=== PATIENT | male | born 1950 | race Caucasian/White ===

== ENCOUNTER 2021-06-21 12:17 | Inpatient (IN) | payer OTHER ==
--- NOTE | 2021-06-21 13:15 | RAD REPORT ---
EXAM DESCRIPTION: RAD - Chest Single View - 06/21/2021 1:04 pm CLINICAL HISTORY: COUGH COMPARISON: No comparisons FINDINGS: Lines: None. Lungs: Widespread milder airspace disease in the right lung and left lung base. The left upper lobe i s relatively well aerated Pleural: No significant pleural effusions or pneumothorax. Cardiac: The heart size is within normal limits. Bones: No acute fractures. Other: IMPRESSION: Multifocal airspace disease may represent pneumonia, including Covid-19
--- NOTE | 2021-06-21 13:18 | RAD REPORT ---
EXAM DESCRIPTION: CT - Head Brain Wo Cont - 06/21/2021 1:10 pm CLINICAL HISTORY: PAIN COMPARISON: No comparisons TECHNIQUE: All CT scans are performed using dose optimization technique as appropriate and may inclu de automated exposure control or mA/KV adjustment according to patient size. FINDINGS: No intracranial hemorrhage, hydrocephalus or extra-axial fluid collection.No areas of brai n edema or evidence of midline shift. Paranasal sinus thickening including the maxillary sinuses and ethmoid air cells. The calvarium is in tact. IMPRESSION: No acute intracranial abnormality.
[2021-06-21 13:33] LABS: Basophils % 0.5 % (0-1.3); Hematocrit 35.8 % (39.6-49.0); Lymphocytes % 7.5 % (15.3-44.8); MPV 7.8 fL (7.6-11.3); Protime INR 1.11
[2021-06-21 13:52] LABS: ALT/SGPT 28 U/L (12-78); AST/SGOT 44 U/L (15-37); Albumin 3.2 g/dL (3.4-5.0); Alkaline Phosphatase 115 U/L (45-117); BUN Blood Urea Nitrogen 17 mg/dL (7-18); Bicarbonate 23 mmol/L (21-32); Bilirubin Direct 0.2 mg/dL (0-0.2); Bilirubin Total 0.4 mg/dL (0.2-1.0); Ferritin 755.1 ng/mL (26-388); Glucose Level 113 mg/dL (74-106); Magnesium 3.3 mg/dL (1.8-2.4); NT PRO-BNP 205 pg/mL (<125); Potassium 3.7 mmol/L (3.5-5.1); Protein, Total 7.7 g/dL (6.4-8.2); Sodium Level 138 mmol/L (136-145); Troponin (Emerg Dept Use Only) < 0.02 ng/mL (0.0-0.045)
[2021-06-21 14:06] LABS: Blood Morphology Comment NOT SEEN (NOT SEEN); Platelet Estimate INCR; White Blood Cell Scan OK (OK)
--- NOTE | 2021-06-21 14:44 | EDPHYS ---
Physician Documentation [facility] Name: Shaheed Frank Jr Age: 70 yrs Sex: Male : 1950 Arrival Date: 06/21/2021 Time: 12:19 Bed 3 Private MD: ED Physician Zulema Baxter HPI: 06/21 13:04 This 70 yrs old Male presents to ER via Ambulatory with complaints of sp3 Breathing Difficulty. 13:04 70-year-old male with history of hypertension presents with shortness of breath, cough, sp3 subjective fever for 7 days prior to arrival. Room air pulse ox in the low 80s on arrival. Patient was placed in the room I have immediately seen the patient. Patient denies getting a Covid vaccine or exposure to known sick contacts. He has no other complaints including headache, neck pain, chest pain, back pain, abdominal pain, loss of taste or smell, nausea, vomiting, diarrhea, syncope, neuro symptoms, rash, bleeding, any other ROS at this time.. Historical: - Allergies: 12:27 No Known Allergies; tw2 - Home Meds: 12:33 clopidogrel 75 mg oral tab 1 tab once daily [Active]; amlodipine 10 mg tab 1 tab once ld1 daily [Active]; lisinopril 20 mg Oral tab 1 tab once daily [Active]; - PMHx: 12:35 Hypertensive disorder; tw2 - Immunization history:: Adult Immunizations Client reports having NOT received the Covid vaccine. - Social history:: Smoking status: Patient reports the use of cigarette tobacco products, smokes one-half pack cigarettes per day. ROS: 13:05 Eyes: Negative for injury, pain, redness, and discharge, ENT: Negative for injury, sp3 pain, and discharge, Neck: Negative for injury, pain, and swelling, Cardiovascular: Negative for chest pain, palpitations, and edema, Abdomen/GI: Negative for abdominal pain, nausea, vomiting, diarrhea, and constipation, Skin: Negative for injury, rash, and discoloration, Neuro: Negative for headache, weakness, numbness, tingling, and seizure, Psych: Negative for depression, anxiety, suicide ideation, homicidal ideation, and hallucinations. 13:05 Constitutional: Positive for fatigue, malaise. 13:05 Respiratory: Positive for cough, dyspnea on exertion, shortness of breath. Exam: 13:06 Head/Face: Normocephalic, atraumatic. Neck: Trachea midline, no thyromegaly or masses sp3 palpated, and no cervical lymphadenopathy. Supple, full range of motion without nuchal rigidity, or vertebral point tenderness. No Meningismus. Chest/axilla: Normal chest wall appearance and motion. Nontender with no deformity. No lesions are appreciated. Cardiovascular: Regular rate and rhythm with a normal S1 and S2. No gallops, murmurs, or rubs. Normal PMI, no JVD. No pulse deficits. Abdomen/GI: Soft, non-tender, with normal bowel sounds. No distension or tympany. No guarding or rebound. No evidence of tenderness throughout. Skin: Warm, dry with normal turgor. Normal color with no rashes, no lesions, and no evidence of cellulitis. Neuro: Awake and alert, GCS 15, oriented to person, place, time, and situation. Cranial nerves II-XII grossly intact. Motor strength 5/5 in all extremities. Sensory grossly intact. Cerebellar exam normal. Normal gait. 13:06 Constitutional: The patient appears alert, awake, anxious, in obvious distress, moderately distressed. 13:55 ECG was reviewed by the Attending Physician. He demonstrates normal sinus rhythm at 76 sp3 bpm with normal intervals, normal QRS, normal axis, nonspecific ST/T changes diffuse. Vital Signs: 12:23 BP 143 / 109; Pulse 83; Resp 24; Temp 97.2; Pulse Ox 76% on R/A; Weight 99.79 kg (R); tw2 13:56 BP 99 / 59; Pulse 79; Resp 24 S; Pulse Ox 93% on 6 lpm NC; jd3 16:07 BP 118 / 95; Pulse 79; Resp 25 S; Pulse Ox 90% on 6 lpm NC; jd3 12:23 started on 4 L NC tw2 MDM: 12:43 Patient medically screened. sp3 13:06 Data reviewed: vital signs, nurses notes. ED course: Patient severely hypoxic and sp3 immediately placed on oxygen. He likely has COVID-19. Will obtain work-up and start treatment based on final diagnosis and disposition. Other differential diagnosis includes bacterial pneumonia or cardiovascular process including acute coronary syndrome.. 14:41 ED course: Patient admitted with essentially COVID-19. Test is still pending. Will give sp3 Solu-Medrol and Lovenox.. 06/21 12:45 Order name: Basic Metabolic Panel; Complete Time: 14:09 sp3 06/21 12:45 Order name: CBC with Diff; Complete Time: 14:09 sp3 06/21 12:45 Order name: LFT's; Complete Time: 14:09 sp3 06/21 12:45 Order name: Magnesium; Complete Time: 14:09 sp3 06/21 12:45 Order name: NT PRO-BNP; Complete Time: 14:09 sp3 06/21 12:45 Order name: PT-INR; Complete Time: 14:09 sp3 06/21 12:45 Order name: Troponin (emerg Dept Use Only); Complete Time: 14:09 sp3 06/21 12:45 Order name: Ferritin; Complete Time: 14:09 sp3 06/21 12:45 Order name: CRP; Complete Time: 14:09 sp3 06/21 14:06 Order name: CBC Smear Scan; Complete Time: 14:09 EDMS 06/21 15:41 Order name: SARS-COV-2 RT PCR; Complete Time: 16:15 EDMS 06/21 18:26 Order name: Lipid Profile EDMS 06/21 12:45 Order name: XRAY Chest (1 view); Complete Time: 14:09 sp3 06/21 12:45 Order name: EKG; Complete Time: 12:46 sp3 06/21 12:45 Order name: Cardiac monitoring; Complete Time: 13:24 sp3 06/21 12:45 Order name: EKG - Nurse/Tech; Complete Time: 13:44 sp3 06/21 12:45 Order name: IV Saline Lock; Complete Time: 13:24 sp3 06/21 12:45 Order name: Labs collected and sent; Complete Time: 13:24 sp3 06/21 12:45 Order name: O2 Per Protocol; Complete Time: 13:24 sp3 06/21 12:45 Order name: O2 Sat Monitoring; Complete Time: 13:24 sp3 06/21 12:51 Order name: CT Head Brain wo Cont; Complete Time: 14:09 sp3 06/21 15:10 Order name: Diet Regular; Complete Time: 15:11 jd3 06/21 18:26 Order name: T4 Free EDMS 06/21 18:26 Order name: Thyroid Stimulating Hormone EDMS 06/21 21:23 Order name: Hemoglobin A1c EDNE Administered Medications: 13:24 Not Given (Physician Discretion): Ketorolac 30 mg IVP once jd3 15:00 Drug: SOLU-Medrol (methylPrednisoLONE) 125 mg Route: IVP; Site: left antecubital; jd3 16:00 Follow up: Response: No adverse reaction jd3 15:01 Drug: Lovenox (enoxaparin) 1 mg/kg Route: Sub-Q; Site: abdomen; jd3 16:00 Follow up: Response: No adverse reaction jd3 Disposition Summary: 06/21/21 14:44 Hospitalization Ordered Hospitalization Status: Inpatient Admission sp3 Provider: Raúl Zambrano sp3 Location: Telemetry/[facility] (Inpatient) sp3 Condition: Serious sp3 Problem: new sp3 Symptoms: have worsened sp3 Bed/Room Type: Standard sp3 Room Assignment: 412(06/22/21 00:07) tl1 Diagnosis - Pneumonia due to SARS-associated coronavirus sp3 Forms: - Medication Reconciliation Form sp3 - SBAR form sp3 Signatures: Dispatcher [employer] [facility] Emmy Smith RN RN tl1 Carley White RN RN tw2 Wally Virgen RN RN jd3 Clara Flores RN RN ld1 Zulema Baxter MD MD sp3 Corrections: (The following items were deleted from the chart) 13:49 13:25 CORONAVIRUS+.BRZ ordered. [facility] EDNE 06/22 00:07 06/21 14:44 sp3 tl1
--- NOTE | 2021-06-21 14:44 | ER ---
Nurse's Notes [facility] Name: Shaheed Frank Jr Age: 70 yrs Sex: Male : 1950 Arrival Date: 06/21/2021 Time: 12:19 Bed 3 Private MD: Diagnosis: Pneumonia due to SARS-associated coronavirus Presentation: 06/21 12:23 Chief complaint: Patient states: i am h having a hard time walking Patient's son or tw2 daughter states: he has been coughing and short of breath for over a week. he just hasnt gotten any better. Coronavirus screen: cough unrelated to allergies, shortness of breath, Client presents with at least one sign or symptom that may indicate coronavirus-19. Standard/surgical mask placed on the client. Provider contacted for isolation considerations. Ebola Screen: Patient denies travel to an Ebola-affected area in the 21 days before illness onset. Initial Sepsis Screen: Does the patient meet any 2 criteria? No. Patient's initial sepsis screen is negative. Does the patient have a suspected source of infection? No. Patient's initial sepsis screen is negative. Risk Assessment: Do you want to hurt yourself or someone else? Patient reports no desire to harm self or others. Onset of symptoms was June 21, 2021. 12:23 Method Of Arrival: Ambulatory tw2 12:23 Acuity: CHUCKY 2 tw2 Triage Assessment: 12:23 General: Appears in no apparent distress. Behavior is calm, cooperative, appropriate tw2 for age. Pain: Denies pain. Respiratory: Reports shortness of breath at rest on exertion cough that is non-productive, Onset: The symptoms/episode began/occurred "a week now", the patient has severe shortness of breath. Historical: - Allergies: 12:27 No Known Allergies; tw2 - Home Meds: 12:33 clopidogrel 75 mg oral tab 1 tab once daily [Active]; amlodipine 10 mg tab 1 tab once ld1 daily [Active]; lisinopril 20 mg Oral tab 1 tab once daily [Active]; - PMHx: 12:35 Hypertensive disorder; tw2 - Immunization history:: Adult Immunizations Client reports having NOT received the Covid vaccine. - Social history:: Smoking status: Patient reports the use of cigarette tobacco products, smokes one-half pack cigarettes per day. Screenin:35 Abuse screen: Denies threats or abuse. Nutritional screening: No deficits noted. tw2 Tuberculosis screening: No symptoms or risk factors identified. Fall Risk Secondary diagnosis (15 points). Assessment: 13:00 General: Appears in no apparent distress. uncomfortable, Behavior is calm, cooperative, jd3 appropriate for age. Pain: Complains of pain in back and chest Quality of pain is described as pressure. Neuro: Level of Consciousness is awake, alert, obeys commands, Oriented to person, place, time, situation. Cardiovascular: Denies chest pain, Capillary refill < 3 seconds Patient's skin is warm and dry. Rhythm is sinus rhythm. Respiratory: Reports shortness of breath at rest cough that is dry, persistent Airway is patent Respiratory effort is labored, shallow, Respiratory pattern is symmetrical, tachypnea Breath sounds are diminished bilaterally. GI: No signs and/or symptoms were reported involving the gastrointestinal system. : No signs and/or symptoms were reported regarding the genitourinary system. EENT: No signs and/or symptoms were reported regarding the EENT system. Derm: Skin is intact, Skin is dry, Skin is normal, Skin temperature is warm. Musculoskeletal: Circulation, motion, and sensation intact. Range of motion: intact in all extremities. 14:01 Reassessment: Patient appears in no apparent distress at this time. No changes from jd3 previously documented assessment. Patient and/or family updated on plan of care and expected duration. Pain level reassessed. Respiratory: Airway is patent Respiratory effort is appears more relaxed Respiratory pattern is symmetrical, tachypnea. 16:06 Reassessment: Patient appears in no apparent distress at this time. No changes from jd3 previously documented assessment. Patient and/or family updated on plan of care and expected duration. Pain level reassessed. awaiting admission. 06/22 00:32 Reassessment: Patient and/or family updated on plan of care and expected duration. Pain ea level reassessed. Patient is alert, oriented x 3, equal unlabored respirations, skin warm/dry/pink. Pt admitted to fourth floor. 00:54 Reassessment: Patient and/or family updated on plan of care and expected duration. Pain ea level reassessed. Patient is alert, oriented x 3, equal unlabored respirations, skin warm/dry/pink. Pt admitted to fourth floor, left ED via stretcher per neurology tech, pt tolerating well. Vital Signs: 06/21 12:23 BP 143 / 109; Pulse 83; Resp 24; Temp 97.2; Pulse Ox 76% on R/A; Weight 99.79 kg (R); tw2 13:56 BP 99 / 59; Pulse 79; Resp 24 S; Pulse Ox 93% on 6 lpm NC; jd3 16:07 BP 118 / 95; Pulse 79; Resp 25 S; Pulse Ox 90% on 6 lpm NC; jd3 12:23 started on 4 L NC tw2 ED Course: 12:19 Patient arrived in ED. am2 12:23 Notified ED physician of vital signs. tw2 12:26 Triage completed. tw2 12:27 Arm band placed on. tw2 12:27 Bed in low position. Call light in reach. monitoring analyst on. Pulse ox on. NIBP on. tw2 12:28 Wally Virgen RN is Primary Nurse. jd3 12:32 Zulema Baxter MD is Attending Physician. sp3 13:04 XRAY Chest (1 view) In Process Unspecified. EDMS 13:09 CT Head Brain wo Cont In Process Unspecified. EDMS 13:24 Inserted saline lock: 20 gauge in left antecubital area, using aseptic technique. Blood jd3 collected. 14:44 Raúl Zambrano is Hospitalizing Provider. sp3 18:00 Patient admitted, IV remains in place. jd3 18:42 No provider procedures requiring assistance completed. jd3 Administered Medications: 13:24 Not Given (Physician Discretion): Ketorolac 30 mg IVP once jd3 15:00 Drug: SOLU-Medrol (methylPrednisoLONE) 125 mg Route: IVP; Site: left antecubital; jd3 16:00 Follow up: Response: No adverse reaction jd3 15:01 Drug: Lovenox (enoxaparin) 1 mg/kg Route: Sub-Q; Site: abdomen; jd3 16:00 Follow up: Response: No adverse reaction jd3 Outcome: 14:44 Decision to Hospitalize by Provider. sp3 18:00 Admitted to ER Hold. [facility] [place]. jd3 18:00 Condition: stable 18:00 Instructed on the need for admit. 06/22 00:55 Patient left the ED. ea Signatures: Dispatcher [employer] EDCarley Mckeon RN RN tw2 Laurie Aguayo am2 Kristine Cortes RN RN Wally Can RN RN jd3 Clara Flores RN RN ld1 Zulema Baxter MD MD sp3 Corrections: (The following items were deleted from the chart) 06/21 16:07 13:56 BP 99 / 59; Pulse 79bpm; Resp 24bpm; Spontaneous; Pulse Ox 94% RA; jd3 jd3
[2021-06-21] MEDS ORDERED: METHYLPREDNISOLONE 125 MG INJ ONE (15:10)
[2021-06-21] MEDS ORDERED: ENOXAPARIN 100 MG/ML SYR SQ ONE (15:10)
[2021-06-21] MEDS ORDERED: LABETALOL 20 MG/4ML SYRINGE IV PRN (16:08)
[2021-06-21] MEDS ORDERED: ONDANSETRON 4 MG/2 ML VIAL IV PRN (16:09)
[2021-06-21] MEDS ORDERED: ACETAMINOPHEN 500 MG TAB PO PRN (16:09)
[2021-06-21] MEDS ORDERED: HYDROCODONE/APAP 5/325 MG TAB PO PRN (16:25)
--- NOTE | 2021-06-21 16:25 | P.HP ---
Certification for Inpatient Patient admitted to: Inpatient With expected LOS: >2 Midnights Patient will require the following post-hospital care: None Practitioner: I am a practitioner with admitting privileges, knowledge of patient current condition, hospital course, and medical plan of care. Services: Services provided to patient in accordance with Admission requirements found in Title 42 Section 412.3 of the Code of Federal Regulations Patient History Date of Service: 06/22/21 Reason for admission: SOB History of Present Illness: Patient is a 70-year-old male with a past medical history significant for hypertension who presents with shortness of breath does been ongoing for the past 4 days. Patient reported that he started having fever 1 week ago. Patient reports associated signs and symptoms of cough, dizziness, loss of appetite//taste, weakness, fatigue and chest tightness. Patient reported that symptoms are aggravated by exertion and relieved by nothing. Patient decided to present to the hospital due to worsening symptoms. Allergies No Known Allergies Allergy (Unverified 06/21/21 15:57) Home medications list reviewed: No - Past Medical/Surgical History -: HTN Past Surgical History: Patient denies surgical history - Family History Family History: Reviewed- Non-Contributory - Social History Smoking Status: Current every day smoker Counseled patient to stop smoking for: less than 10 minutes Smoking therapy provided: Yes Patient receptive to therapy: Yes Alcohol use: Yes Place of Residence: Home Review of Systems General: Fever, Chills, Weakness Eyes: Unremarkable ENT: Unremarkable Respiratory: Cough, Shortness of Breath Cardiovascular: Unremarkable Gastrointestinal: Nausea, Vomiting Genitourinary: Unremarkable Musculoskeletal: Unremarkable Integumentary: Unremarkable Neurological: Unremarkable Physical Examination - Physical Exam General: Alert, In no apparent distress, Mild distress HEENT: Atraumatic, PERRLA, Mucous membr. moist/pink, EOMI, Sclerae nonicteric Neck: Supple, 2+ carotid pulse no bruit, No LAD, Without JVD or thyroid abnormality Respiratory: Clear to auscultation bilaterally, Diminished Cardiovascular: Regular rate/rhythm, Normal S1 S2 Gastrointestinal: Normal bowel sounds, No tenderness Musculoskeletal: No tenderness Integumentary: No rashes Neurological: Normal gait, Normal speech, Normal strength at 5/5 x4 extr, Normal tone, Normal affect Lymphatics: No axilla or inguinal lymphadenopathy External genitalia: Deferred Rectal: Deferred - Studies Laboratory Data (last 24 hrs) 06/21/21 13:21: PT 12.8 H, INR 1.11 06/21/21 13:21: WBC 13.90 H, Hgb 12.2 L, Hct 35.8 L, Plt Count 448 H 06/21/21 13:21: Sodium 138, Potassium 3.7, BUN 17, Creatinine 0.95, Glucose 113 H, Magnesium 3.3 H, Total Bilirubin 0.4, AST 44 H, ALT 28, Alkaline Phosphatase 115 Assessment and Plan - Plan --COVID-19 pneumonia. Pulmonology consulted. Patient started on steroids.Continue supportive care with pepcid\vitamin C\thiamine\zinc\vitamin D3 and Melatonin. Will await further recommendation from [employer]. --COVID-19 infection. Continue current treatment regimen. Inflammatory markers pending. Further management per [employer]. -- Acute respiratory distress with hypoxia. Continue current treatment regimen and O2 therapy. Further management per [employer]. --Hypertension. Stable. Continue home medications. --Leukocytosis. Blood cultures pending. Patient placed on antibiotics. --DVT prophylaxis with Heparin subQ I have had discussion about advanced directives with the patient during this hospital admission. Addressed code status and /or goals of care. Spent more than 15 minutes. Case discussed withpatient and nurse. Discharge Plan: Home Plan to discharge in: 48 Hours - Advance Directives Does patient have a Living Will: No Does patient have a Durable POA for Healthcare: No - Code Status/Comfort Care Code Status Assessed: Yes Code Status: Full Code Physician Review: Patient Assessed, Agree with Above Assessment and Plan Critical Care: No
[2021-06-21] MEDS: HEPARIN 5000 UNIT/ML 1 ML VIAL SQ SCH (17:00)
[2021-06-21] MEDS ORDERED: Levofloxacin500mg IV 500 MG/100 ML BAG IV ONE (17:00)
[2021-06-21] MEDS ORDERED: HEPARIN 5000 UNIT/ML 1 ML VIAL ONE (18:04)
[2021-06-21 18:26] LABS: Thyroid Stimulating Hormone 0.362 uIU/mL (0.360-3.740)
[2021-06-21 18:42] VITALS: BMI 30.7
[2021-06-22] MEDS: ASCORBIC ACID 500 MG TABLET PO SCH ×3 (01:27→20:35)
[2021-06-22] MEDS: FAMOTIDINE 20 MG TAB PO SCH ×3 (01:27→20:35)
[2021-06-22] MEDS: HEPARIN 5000 UNIT/ML 1 ML VIAL SQ SCH ×3 (01:27→17:17)
[2021-06-22] MEDS: MELATONIN 5 MG TABLET PO SCH ×2 (01:33→20:35)
[2021-06-22 04:16] LABS: Absolute Lymphocytes (CBC) 1.3 K/uL (0.7-4.9); Basophils % 0.1 % (0-1.3); Hematocrit 34.6 % (39.6-49.0); Lymphocytes % 7.7 % (15.3-44.8); RBC Red Blood Cell Count 4.15 M/uL (4.33-5.43)
[2021-06-22 04:24] LABS: BUN Blood Urea Nitrogen 21 mg/dL (7-18); Bicarbonate 25 mmol/L (21-32); Glucose Level 147 mg/dL (74-106); Potassium 4.2 mmol/L (3.5-5.1); Sodium Level 139 mmol/L (136-145)
[2021-06-22] MEDS: VITAMIN D 5,000 UNIT CAP PO SCH (08:43)
[2021-06-22] MEDS: ASPIRIN EC 81 MG TAB PO SCH (08:43)
[2021-06-22] MEDS: ZINC SULFATE 220 MG CAP PO SCH (08:43)
[2021-06-22] MEDS: THIAMINE HCL 100 MG TABLET PO SCH (08:43)
[2021-06-22] MEDS: SOD CHLORIDE 0.65% NASAL SPRAY NAS PRN (11:35)
[2021-06-22] MEDS: FLUTICASONE 50MCG NASAL SPRAY NAS SCH (11:35)
[2021-06-22] MEDS: FEXOFENADINE 180 MG TAB PO PRN (11:35)
[2021-06-22 13:03] LABS: Urine Appearance CLEAR (Clear); Urine Bilirubin NEGATIVE (Negative); Urine Blood NEGATIVE (Negative); Urine Color YELLOW (Yellow); Urine Glucose NEGATIVE (Negative); Urine Protein 1+ (Negative); Urine Specific Gravity 1.015 (1.005-1.030); Urine Urobilinogen 0.2 mg/dL (0.2-1.0)
[2021-06-22 13:05] LABS: Urine Microscopic Reflex NO UMIC
--- NOTE | 2021-06-22 16:52 | P.PN ---
Subjective Date of Service: 06/22/21 Chief Complaint: SOB Patient reports shortness of breath. Oxygen requirement increased to 10-15 L today. Physical Examination - Vital Signs Temperature: 97.2 F Blood Pressure: 133/79 Pulse: 89 Respirations: 32 Pulse Ox (%): 92 - Physical Exam General: Alert, Mild distress HEENT: Mucous membr. moist/pink Neck: JVD not distended Respiratory: Other (Nonlabored breathing) Cardiovascular: No edema, Regular rate/rhythm, Normal S1 S2 Gastrointestinal: Soft and benign, Non-distended Musculoskeletal: No swelling Integumentary: No rashes Neurological: Normal strength at 5/5 x4 extr Assessment And Plan - Current Problems (Diagnosis) (1) Pneumonia due to COVID-19 virus Current Visit: Yes Status: Acute (2) Acute respiratory failure with hypoxia Current Visit: Yes Status: Acute (3) Essential hypertension Current Visit: Yes Status: Acute - Plan Continue IV steroid. Pharmacy to evaluate for Remdesivir and Baracitinib therapy. Titrate oxygen. Pulmonary consult is pending. Vitamins and zinc supplementation. Empiric antibiotics for possible secondary bacterial pneumonia. Resume home medications for hypertension and CAD. Physician Review: Patient Assessed, Agree with Above Assessment and Plan
[2021-06-22] MEDS ORDERED: Levofloxacin500mg IV 500 MG/100 ML BAG IV SCH (17:00)
[2021-06-22] MEDS: levoFLOXacin 500 MG TAB PO SCH (17:17)
[2021-06-22] MEDS: CLOPIDOGREL 75 MG TABLET PO SCH (17:17)
[2021-06-22] MEDS: lisinopriL 20 MG TAB PO SCH (17:17)
[2021-06-22] MEDS ORDERED: REMDESIVIR (EUA) 200 MG in NA CHLORIDE 0.9% 250 ML IV ONE (18:00)
[2021-06-22 18:38] LABS: ALT/SGPT 39 U/L (12-78); AST/SGOT 54 U/L (15-37); Albumin 2.7 g/dL (3.4-5.0); Alkaline Phosphatase 122 U/L (45-117); Bilirubin Direct < 0.1 mg/dL (0-0.2); Bilirubin Total 0.3 mg/dL (0.2-1.0); Protein, Total 7.1 g/dL (6.4-8.2)
[2021-06-22] MEDS: ATORVASTATIN 80 MG TAB PO SCH (20:35)
[2021-06-22] MEDS: METHYLPREDNISOLONE 125 MG INJ IV SCH (21:58)
[2021-06-23] MEDS: BENZONATATE 100 MG CAP PO PRN (00:45)
[2021-06-23] MEDS: HEPARIN 5000 UNIT/ML 1 ML VIAL SQ SCH ×2 (00:45→09:24)
[2021-06-23 04:50] LABS: Absolute Lymphocytes (CBC) 1.6 K/uL (0.7-4.9); Basophils % 0.3 % (0-1.3); Hematocrit 34.8 % (39.6-49.0); RBC Red Blood Cell Count 4.14 M/uL (4.33-5.43)
[2021-06-23 05:10] LABS: BUN Blood Urea Nitrogen 21 mg/dL (7-18); Bicarbonate 28 mmol/L (21-32); Glucose Level 140 mg/dL (74-106); Potassium 4.6 mmol/L (3.5-5.1); Sodium Level 138 mmol/L (136-145)
[2021-06-23 08:27] LABS: ALT/SGPT 51 U/L (12-78); AST/SGOT 50 U/L (15-37); Albumin 2.7 g/dL (3.4-5.0); Alkaline Phosphatase 131 U/L (45-117); BUN Blood Urea Nitrogen 21 mg/dL (7-18); Bicarbonate 27 mmol/L (21-32); Bilirubin Total 0.4 mg/dL (0.2-1.0); Glucose Level 140 mg/dL (74-106); Potassium 4.5 mmol/L (3.5-5.1); Protein, Total 7.2 g/dL (6.4-8.2); Sodium Level 138 mmol/L (136-145)
[2021-06-23 08:47] LABS: Blood Morphology Comment NOT SEEN (NOT SEEN); Platelet Estimate INCR
[2021-06-23] MEDS ORDERED: METHYLPREDNISOLONE 125 MG INJ IV SCH (09:00)
[2021-06-23] MEDS: METHYLPREDNISOLONE 125 MG INJ IV SCH ×2 (09:22→19:56)
[2021-06-23] MEDS: ASPIRIN EC 81 MG TAB PO SCH (09:23)
[2021-06-23] MEDS: THIAMINE HCL 100 MG TABLET PO SCH (09:23)
[2021-06-23] MEDS: AMLODIPINE 10 MG TAB PO SCH (09:23)
[2021-06-23] MEDS: FAMOTIDINE 20 MG TAB PO SCH ×2 (09:23→19:57)
[2021-06-23] MEDS: lisinopriL 20 MG TAB PO SCH (09:23)
[2021-06-23] MEDS: ASCORBIC ACID 500 MG TABLET PO SCH ×2 (09:23→19:57)
[2021-06-23] MEDS: VITAMIN D 5,000 UNIT CAP PO SCH (09:23)
[2021-06-23] MEDS: CLOPIDOGREL 75 MG TABLET PO SCH (09:23)
[2021-06-23] MEDS: FLUTICASONE 50MCG NASAL SPRAY NAS SCH ×2 (09:24→20:11)
[2021-06-23] MEDS: ZINC SULFATE 220 MG CAP PO SCH (09:24)
[2021-06-23] MEDS: SOD CHLORIDE 0.65% NASAL SPRAY NAS PRN (09:24)
[2021-06-23] MEDS: REMDESIVIR (EUA) 100 MG in NA CHLORIDE 0.9% 250 ML IV SCH (10:30)
[2021-06-23] MEDS ORDERED: IVERMECTIN 3 MG TABLET PO ONE (12:41)
--- NOTE | 2021-06-23 12:42 | P.CNS ---
Date of Consult: 06/23/21 Reason for Consult: Coronavirus pneumonia Chief Complaint: SOB History of Present Illness: Patient is 70 years of age with a history of hypertension presents to the hospital with a diagnosis of coronavirus pneumonia currently doing better since admission loss of appetite weakness fatigue chest tightness Allergies No Known Allergies Allergy (Verified 06/22/21 01:22) Home Medications: Amlodipine [Norvasc*] 10 mg PO DAILY 06/22/21 Atorvastatin Calcium [Lipitor] 80 mg PO BEDTIME 06/22/21 Clopidogrel Bisulfate [Plavix*] 75 mg PO DAILY 06/22/21 Lisinopril [Zestril] 20 mg PO DAILY 06/22/21 - Past Medical/Surgical History Diabetic: No -: HTN - Social History Smoking Status: Current every day smoker Alcohol use: Yes CD- Drugs: No Caffeine use: Yes Place of Residence: Home Review of Systems General: Weakness Respiratory: Shortness of Breath Physical Examination Temp Pulse Resp BP Pulse Ox 97.7 F 81 22 H 134/57 L 92 06/23/21 08:00 06/23/21 08:00 06/23/21 08:00 06/23/21 08:00 06/23/21 08:00 General: Alert, Oriented x3, Cooperative - Problems (1) Pneumonia due to COVID-19 virus Current Visit: Yes Status: Acute Plan: Patient is 70 years of age admitted with pneumonia due to coronavirus he has diffuse bilateral infiltrates CRP is very elevated qualify for Barcitinib vital signs stable I have also started him on ivermectin continue with the steroids hold anticoagulation currently on 15 L 100% FiO2
[2021-06-23] MEDS: IVERMECTIN 3 MG TABLET PO SCH (15:23)
[2021-06-23] MEDS: BARICITINIB 2 MG TABLET PO SCH (15:23)
--- NOTE | 2021-06-23 16:46 | P.PN ---
Subjective Date of Service: 06/23/21 Chief Complaint: SOB Oxygen requirement has increased. Patient is not requiring 100% non-rebreather. Physical Examination - Vital Signs Temperature: 97.1 F Blood Pressure: 131/68 Pulse: 78 Respirations: 26 Pulse Ox (%): 92 - Physical Exam General: Alert, Mild distress Neck: JVD not distended Respiratory: Other (Mildly labored breathing) Cardiovascular: No edema, Regular rate/rhythm, Normal S1 S2 Gastrointestinal: Soft and benign, Non-distended Musculoskeletal: No swelling Neurological: Normal strength at 5/5 x4 extr Assessment And Plan - Current Problems (Diagnosis) (1) Pneumonia due to COVID-19 virus Current Visit: Yes Status: Acute (2) Acute respiratory failure with hypoxia Current Visit: Yes Status: Acute (3) Essential hypertension Current Visit: Yes Status: Acute - Plan Continue IV steroid. Patient started on Baracitinib and Remdesivir. Pulmonary input appreciated. Titrate oxygen. Vitamins and zinc supplementation. Continue home medications for hypertension and CAD.
[2021-06-23] MEDS: levoFLOXacin 500 MG TAB PO SCH (17:41)
[2021-06-23] MEDS: RIVAROXABAN 20 MG TABLET PO SCH (17:41)
[2021-06-23] MEDS: ATORVASTATIN 80 MG TAB PO SCH (19:56)
[2021-06-23] MEDS: MELATONIN 5 MG TABLET PO SCH (19:56)
[2021-06-24 05:55] LABS: Absolute Lymphocytes (CBC) 2.2 K/uL (0.7-4.9); Basophils % 0.2 % (0-1.3); Hematocrit 34.3 % (39.6-49.0); MPV 7.8 fL (7.6-11.3); RBC Red Blood Cell Count 4.07 M/uL (4.33-5.43)
[2021-06-24 06:06] LABS: ALT/SGPT 59 U/L (12-78); AST/SGOT 54 U/L (15-37); Albumin 2.6 g/dL (3.4-5.0); Alkaline Phosphatase 125 U/L (45-117); BUN Blood Urea Nitrogen 24 mg/dL (7-18); Bicarbonate 28 mmol/L (21-32); Bilirubin Total 0.3 mg/dL (0.2-1.0); Glucose Level 127 mg/dL (74-106); Potassium 4.4 mmol/L (3.5-5.1); Protein, Total 6.6 g/dL (6.4-8.2); Sodium Level 137 mmol/L (136-145)
[2021-06-24 07:38] LABS: Platelet Estimate ADEQ; White Blood Cell Scan OK (OK)
[2021-06-24 07:39] LABS: Blood Morphology Comment NOT SEEN (NOT SEEN)
[2021-06-24] MEDS: THIAMINE HCL 100 MG TABLET PO SCH (08:07)
[2021-06-24] MEDS: ASPIRIN EC 81 MG TAB PO SCH (08:07)
[2021-06-24] MEDS: BARICITINIB 2 MG TABLET PO SCH (08:07)
[2021-06-24] MEDS: ASCORBIC ACID 500 MG TABLET PO SCH ×2 (08:08→21:55)
[2021-06-24] MEDS: CLOPIDOGREL 75 MG TABLET PO SCH (08:08)
[2021-06-24] MEDS: METHYLPREDNISOLONE 125 MG INJ IV SCH ×2 (08:08→21:55)
[2021-06-24] MEDS: FAMOTIDINE 20 MG TAB PO SCH ×2 (08:09→21:57)
[2021-06-24] MEDS: VITAMIN D 5,000 UNIT CAP PO SCH (08:09)
[2021-06-24] MEDS: ZINC SULFATE 220 MG CAP PO SCH (08:09)
[2021-06-24] MEDS: lisinopriL 20 MG TAB PO SCH (08:13)
[2021-06-24] MEDS: AMLODIPINE 10 MG TAB PO SCH (08:14)
[2021-06-24] MEDS: FLUTICASONE 50MCG NASAL SPRAY NAS SCH ×2 (08:34→21:58)
[2021-06-24] MEDS: REMDESIVIR (EUA) 100 MG in NA CHLORIDE 0.9% 250 ML IV SCH (09:04)
--- NOTE | 2021-06-24 14:58 | P.PN ---
Subjective Date of Service: 06/24/21 Chief Complaint: SOB Patient states he is feeling better today He is on 100% non-rebreather. Physical Examination - Vital Signs Temperature: 97.4 F Blood Pressure: 109/69 Pulse: 79 Respirations: 18 Pulse Ox (%): 95 - Physical Exam General: Alert, In no apparent distress Neck: JVD not distended Respiratory: Other (Nonlabored breathing) Cardiovascular: No edema, Regular rate/rhythm, Normal S1 S2 Gastrointestinal: Soft and benign, Non-distended Musculoskeletal: No swelling Integumentary: No rashes, No cyanosis Neurological: Normal strength at 5/5 x4 extr Assessment And Plan - Current Problems (Diagnosis) (1) Pneumonia due to COVID-19 virus Current Visit: Yes Status: Acute (2) Acute respiratory failure with hypoxia Current Visit: Yes Status: Acute (3) Essential hypertension Current Visit: Yes Status: Acute - Plan Continue IV steroid Baracitinib and Remdesivir. Pulmonary is following Titrate oxygen. Patient with leukocytosis which is likely steroid induced. Blood sugar within normal range. Vitamins and zinc supplementation. Continue home medications for hypertension and CAD.
[2021-06-24] MEDS: levoFLOXacin 500 MG TAB PO SCH (16:06)
[2021-06-24] MEDS: RIVAROXABAN 20 MG TABLET PO SCH (16:06)
[2021-06-24] MEDS: MELATONIN 5 MG TABLET PO SCH (21:56)
[2021-06-24] MEDS: ATORVASTATIN 80 MG TAB PO SCH (21:56)
[2021-06-24] MEDS: SOD CHLORIDE 0.65% NASAL SPRAY NAS PRN (21:57)
[2021-06-25 04:16] LABS: Absolute Lymphocytes (CBC) 2.2 K/uL (0.7-4.9); Basophils % 0.4 % (0-1.3); Hematocrit 36.3 % (39.6-49.0); MPV 7.5 fL (7.6-11.3); RBC Red Blood Cell Count 4.31 M/uL (4.33-5.43)
[2021-06-25 04:25] LABS: ALT/SGPT 73 U/L (12-78); AST/SGOT 55 U/L (15-37); Albumin 2.6 g/dL (3.4-5.0); Alkaline Phosphatase 117 U/L (45-117); BUN Blood Urea Nitrogen 23 mg/dL (7-18); Bicarbonate 26 mmol/L (21-32); Bilirubin Total 0.4 mg/dL (0.2-1.0); Glucose Level 132 mg/dL (74-106); Potassium 4.7 mmol/L (3.5-5.1); Protein, Total 6.6 g/dL (6.4-8.2); Sodium Level 137 mmol/L (136-145)
[2021-06-25] MEDS: FLUTICASONE 50MCG NASAL SPRAY NAS SCH ×2 (09:00→21:00)
[2021-06-25] MEDS: BARICITINIB 2 MG TABLET PO SCH (09:00)
[2021-06-25] MEDS: ASPIRIN EC 81 MG TAB PO SCH (09:00)
[2021-06-25] MEDS: ASCORBIC ACID 500 MG TABLET PO SCH ×2 (09:05→21:30)
[2021-06-25] MEDS: METHYLPREDNISOLONE 125 MG INJ IV SCH ×2 (09:06→21:29)
[2021-06-25] MEDS: FAMOTIDINE 20 MG TAB PO SCH ×2 (09:06→21:30)
[2021-06-25] MEDS: VITAMIN D 5,000 UNIT CAP PO SCH (09:06)
[2021-06-25] MEDS: THIAMINE HCL 100 MG TABLET PO SCH (09:06)
[2021-06-25] MEDS: lisinopriL 20 MG TAB PO SCH (09:06)
[2021-06-25] MEDS: CLOPIDOGREL 75 MG TABLET PO SCH (09:07)
[2021-06-25] MEDS: AMLODIPINE 10 MG TAB PO SCH (09:07)
[2021-06-25] MEDS: ZINC SULFATE 220 MG CAP PO SCH (09:07)
[2021-06-25] MEDS: REMDESIVIR (EUA) 100 MG in NA CHLORIDE 0.9% 250 ML IV SCH (09:08)
--- NOTE | 2021-06-25 11:44 | P.PN ---
Subjective Date of Service: 06/25/21 Chief Complaint: Respiratory failure from coronavirus No change patient is still hypoxic very alert responsive cooperative Review of Systems General: Weakness Respiratory: Shortness of Breath Physical Examination - Vital Signs Temperature: 97.4 F Blood Pressure: 114/78 Pulse: 64 Respirations: 18 Pulse Ox (%): 95 - Physical Exam General: Alert, Oriented x3, Cooperative, Mild distress Assessment & Plan - Problems (Diagnosis) (1) Pneumonia due to COVID-19 virus Current Visit: Yes Status: Acute Plan: Respiratory failure from coronavirus continue with present therapy very hypoxic white count elevated patient is on maximal therapy remdesivir and Barcitinib Physician Review: Patient Assessed, Agree with Above Assessment and Plan
--- NOTE | 2021-06-25 13:28 | P.PN ---
Subjective Date of Service: 06/25/21 Chief Complaint: Respiratory failure from coronavirus Patient states he is feeling better today. He has clinically improved and currently tolerating oxygen by nasal canula. He currently has no complain. Physical Examination - Vital Signs Temperature: 97.4 F Blood Pressure: 114/78 Pulse: 64 Respirations: 18 Pulse Ox (%): 95 - Physical Exam General: Alert, In no apparent distress HEENT: Sclerae nonicteric Neck: JVD not distended Respiratory: Other (Nonlabored breathing) Cardiovascular: Regular rate/rhythm, Normal S1 S2 Gastrointestinal: Soft and benign, Non-distended Musculoskeletal: No swelling Integumentary: No rashes Neurological: Normal strength at 5/5 x4 extr Assessment And Plan - Current Problems (Diagnosis) (1) Pneumonia due to COVID-19 virus Current Visit: Yes Status: Acute (2) Acute respiratory failure with hypoxia Current Visit: Yes Status: Acute (3) Essential hypertension Current Visit: Yes Status: Acute - Plan Patient has clinically improved. He is on IV steroid, Baracitinib and Remdesivir. Pulmonary is following Titrate oxygen. Leukocytosis is likely steroid induced. Blood sugar within normal range. Vitamins and zinc supplementation. Continue home medications for hypertension and CAD. Discharge planning-arrange for home oxygen. Physician Review: Patient Assessed, Agree with Above Assessment and Plan
[2021-06-25] MEDS: IVERMECTIN 3 MG TABLET PO SCH (15:00)
[2021-06-25] MEDS: levoFLOXacin 500 MG TAB PO SCH (17:00)
[2021-06-25] MEDS: RIVAROXABAN 20 MG TABLET PO SCH (17:00)
[2021-06-25] MEDS: ATORVASTATIN 80 MG TAB PO SCH (21:29)
[2021-06-25] MEDS: MELATONIN 5 MG TABLET PO SCH (21:30)
[2021-06-26 04:07] LABS: Absolute Lymphocytes (CBC) 1.5 K/uL (0.7-4.9); Basophils % 0.4 % (0-1.3); Hematocrit 36.1 % (39.6-49.0); Lymphocytes % 7.1 % (15.3-44.8); MPV 7.4 fL (7.6-11.3); RBC Red Blood Cell Count 4.34 M/uL (4.33-5.43)
[2021-06-26 04:30] LABS: ALT/SGPT 78 U/L (12-78); AST/SGOT 48 U/L (15-37); Albumin 2.7 g/dL (3.4-5.0); Alkaline Phosphatase 96 U/L (45-117); BUN Blood Urea Nitrogen 25 mg/dL (7-18); Bicarbonate 27 mmol/L (21-32); Bilirubin Total 0.4 mg/dL (0.2-1.0); Glucose Level 125 mg/dL (74-106); Potassium 4.8 mmol/L (3.5-5.1); Protein, Total 6.1 g/dL (6.4-8.2); Sodium Level 138 mmol/L (136-145)
--- NOTE | 2021-06-26 07:16 | RAD REPORT ---
EXAM DESCRIPTION: RAD - Chest Single View - 06/26/2021 4:48 am CLINICAL HISTORY: Respiratory failure from coronavirus COMPARISON: Chest Single View dated 06/21/2021 FINDINGS: Lines: None. Lungs: Improved aeration of the lung bases, particularly left lung base compared with 06/21/2021. Mor e focal type opacities in right upper lung are again noted and similar. Pleural: No significant pleural effusions or pneumothorax. Cardiac: Cardiomegaly . Bones: No acute fractures. Other: IMPRESSION: Improving aeration of the lungs, particularly at the lung bases compared with prior . Th ere is still some residual opacities most notable in the right upper lung.
[2021-06-26] MEDS: REMDESIVIR (EUA) 100 MG in NA CHLORIDE 0.9% 250 ML IV SCH (08:45)
[2021-06-26] MEDS: ASPIRIN EC 81 MG TAB PO SCH (08:46)
[2021-06-26] MEDS: THIAMINE HCL 100 MG TABLET PO SCH (08:46)
[2021-06-26] MEDS: lisinopriL 20 MG TAB PO SCH (08:46)
[2021-06-26] MEDS: METHYLPREDNISOLONE 125 MG INJ IV SCH ×2 (08:46→20:33)
[2021-06-26] MEDS: CLOPIDOGREL 75 MG TABLET PO SCH (08:47)
[2021-06-26] MEDS: AMLODIPINE 10 MG TAB PO SCH (08:47)
[2021-06-26] MEDS: ZINC SULFATE 220 MG CAP PO SCH (08:47)
[2021-06-26] MEDS: FAMOTIDINE 20 MG TAB PO SCH ×2 (08:47→20:34)
[2021-06-26] MEDS: FLUTICASONE 50MCG NASAL SPRAY NAS SCH ×2 (08:47→21:00)
[2021-06-26] MEDS: VITAMIN D 5,000 UNIT CAP PO SCH (08:47)
[2021-06-26] MEDS: ASCORBIC ACID 500 MG TABLET PO SCH ×2 (08:47→20:34)
[2021-06-26] MEDS: BARICITINIB 2 MG TABLET PO SCH ×2 (08:48→12:47)
--- NOTE | 2021-06-26 13:52 | P.DS ---
Admission Date: 06/21/21 Discharge Date: 06/26/21 Disposition: ROUTINE DISCHARGE Discharge Condition: FAIR Reason for Admission: Respiratory failure from coronavirus - Problems (1) Pneumonia due to COVID-19 virus Current Visit: Yes Status: Acute (2) Acute respiratory failure with hypoxia Current Visit: Yes Status: Acute (3) Essential hypertension Current Visit: Yes Status: Acute Brief History of Present Illness: Seen 10-year-old gentleman with a past medical history of hypertension presented to the emergency department with a complaint of progressive shortness of breath of 4 days duration. He also reported fever 1 week prior to presentation. Other symptoms included cough appetite and taste weakness and chest tightness. Chest x-ray done in the emergency department demonstrated bilateral infiltrates consi stent with COVID pneumonia. Patient was requiring about 2 L of oxygen by nasal cannula for oxygen saturation greater than 90%. He was hospitalized for further management. Hospital Course: Patient admitted to the medical floor and treated for COVID pneumonia with IV steroids, vitamin supplementation and zinc supplementation. His oxygen requirement was titrated up to 100% non-rebreather. Patient seen in consultation by pulmonary-Dr. Hoff. He was treated with Remdesivir and Baracitinib. He clinically improved with treatment. His oxygen weaned down to 4 L, repeat chest x-ray demonstrated significant improvement in bilateral infiltrate. Patient able to ambulate with oxygen without shortness of breath. He is deemed stable for discharge. Patient prescribed prednisone taper and follow up with Dr. Hoff within 1 week. Vital Signs/Physical Exam: Temp Pulse Resp BP Pulse Ox 98.4 F 70 32 H 114/92 H 92 06/26/21 08:00 06/26/21 08:00 06/26/21 08:00 06/26/21 08:00 06/26/21 08:00 General: Alert, In no apparent distress, Oriented x3 HEENT: Sclerae nonicteric Neck: JVD not distended Respiratory: Other (Nonlabored breathing) Cardiovascular: No edema, Regular rate/rhythm, Normal S1 S2 Gastrointestinal: Soft and benign, Non-distended, No tenderness Musculoskeletal: No swelling Integumentary: No rashes Neurological: Normal strength at 5/5 x4 extr Laboratory Data at Discharge: WBC 21.80 K/uL (4.3-10.9) H* 06/26/21 03:44 Hgb 12.0 g/dL (13.6-17.9) L 06/26/21 03:44 Hct 36.1 % (39.6-49.0) L 06/26/21 03:44 Plt Count 614 K/uL (152-406) H 06/26/21 03:44 PT 12.8 SECONDS (9.5-12.5) H 06/21/21 13:21 INR 1.11 06/21/21 13:21 Sodium 138 mmol/L (136-145) 06/26/21 03:44 Potassium 4.8 mmol/L (3.5-5.1) 06/26/21 03:44 BUN 25 mg/dL (7-18) H 06/26/21 03:44 Creatinine 0.69 mg/dL (0.55-1.3) 06/26/21 03:44 Glucose 125 mg/dL (74-106) H 06/26/21 03:44 Magnesium 3.3 mg/dL (1.8-2.4) H 06/21/21 13:21 Total Bilirubin 0.4 mg/dL (0.2-1.0) 06/26/21 03:44 AST 48 U/L (15-37) H 06/26/21 03:44 ALT 78 U/L (12-78) 06/26/21 03:44 Alkaline Phosphatase 96 U/L (45-117) 06/26/21 03:44 Triglycerides 186 mg/dL (<150) H 06/21/21 17:20 Cholesterol 99 mg/dL (<200) 06/21/21 17:20 HDL Cholesterol 25 mg/dL (40-60) L 06/21/21 17:20 Cholesterol/HDL Ratio 3.96 06/21/21 17:20 Home Medications: Amlodipine [Norvasc*] 10 mg PO DAILY 06/22/21 Atorvastatin Calcium [Lipitor] 80 mg PO BEDTIME 06/22/21 Clopidogrel Bisulfate [Plavix*] 75 mg PO DAILY 06/22/21 Lisinopril [Zestril] 20 mg PO DAILY 06/22/21 Ascorbic Acid [Vitamin C*] 1,000 mg PO BID #120 tablet 06/26/21 Benzonatate [Tessalon Perle*] 100 mg PO TID PRN #30 cap 06/26/21 Cholecalciferol (Vitamin D3) [Vitamin D 5,000 IU Cap*] 5,000 unit PO DAILY #30 cap 06/26/21 Famotidine [Pepcid*] 20 mg PO BID #60 tab 06/26/21 Fluticasone [Flonase 50MCG Nasal [place]*] 2 sprays ANNE BID #1 btl 06/26/21 Zinc Sulfate [Zinc Sulfate*] 220 mg PO DAILY #30 cap 06/26/21 predniSONE [Deltasone] 20 mg PO BID #21 tab 06/26/21 New Medications: Fluticasone [Flonase 50MCG Nasal [place]*] 2 sprays ANNE BID #1 btl Famotidine [Pepcid*] 20 mg PO BID #60 tab predniSONE [Deltasone] 20 mg PO BID #21 tab Benzonatate [Tessalon Perle*] 100 mg PO TID PRN #30 cap PRN Reason: Cough Ascorbic Acid [Vitamin C*] 1,000 mg PO BID #120 tablet Cholecalciferol (Vitamin D3) [Vitamin D 5,000 IU Cap*] 5,000 unit PO DAILY #30 cap Zinc Sulfate [Zinc Sulfate*] 220 mg PO DAILY #30 cap Diet: AHA Activity: Ad alvino Followup: NONE,NONE [Primary Care Provider] - Chance Hoff MD [ACTIVE - CAN ADMIT] - 1 Week Time spent managing pt's care (in minutes): 40
[2021-06-26] MEDS: RIVAROXABAN 20 MG TABLET PO SCH (17:00)
[2021-06-26] MEDS: levoFLOXacin 500 MG TAB PO SCH (17:00)
--- NOTE | 2021-06-26 18:02 | P.PN ---
Subjective Date of Service: 06/26/21 Chief Complaint: Respiratory failure from coronavirus Patient doing much better. He has clinically improved and currently tolerating oxygen by nasal canula. He is able to ambulate with oxygen without shortness of breath. Physical Examination - Vital Signs Temperature: 97.8 F Blood Pressure: 130/74 Pulse: 57 Respirations: 32 Pulse Ox (%): 96 - Physical Exam General: In no apparent distress Respiratory: Other (Nonlabored breathing) Cardiovascular: No edema, Regular rate/rhythm, Normal S1 S2 Gastrointestinal: Soft and benign, Non-distended Musculoskeletal: No swelling Integumentary: No rashes Neurological: Normal strength at 5/5 x4 extr Assessment And Plan - Current Problems (Diagnosis) (1) Pneumonia due to COVID-19 virus Current Visit: Yes Status: Acute (2) Acute respiratory failure with hypoxia Current Visit: Yes Status: Acute (3) Essential hypertension Current Visit: Yes Status: Acute - Plan Patient has clinically improved. He is on IV steroid, Baracitinib and Remdesivir. Pulmonary is following Leukocytosis is likely steroid induced. Blood sugar within normal range. Vitamins and zinc supplementation. Continue home medications for hypertension and CAD. Ordered home oxygen for home. Awaiting for home oxygen to be delivered so patient can be discharged. Continue to wean down oxygen.
[2021-06-26] MEDS: ATORVASTATIN 80 MG TAB PO SCH (20:33)
[2021-06-26] MEDS: BENZONATATE 100 MG CAP PO PRN (20:40)
[2021-06-26] MEDS: MELATONIN 5 MG TABLET PO SCH (22:19)
[2021-06-27 05:08] LABS: Absolute Lymphocytes (CBC) 1.4 K/uL (0.7-4.9); Basophils % 0.3 % (0-1.3); Hematocrit 38.4 % (39.6-49.0); Lymphocytes % 8.5 % (15.3-44.8); MPV 7.7 fL (7.6-11.3); RBC Red Blood Cell Count 4.58 M/uL (4.33-5.43)
[2021-06-27 05:43] LABS: ALT/SGPT 66 U/L (12-78); AST/SGOT 24 U/L (15-37); Albumin 2.8 g/dL (3.4-5.0); Alkaline Phosphatase 88 U/L (45-117); BUN Blood Urea Nitrogen 25 mg/dL (7-18); Bicarbonate 27 mmol/L (21-32); Bilirubin Total 0.5 mg/dL (0.2-1.0); C-Reactive Protein 9.65 mg/L (<3.00); Ferritin 393.1 ng/mL (26-388); Glucose Level 129 mg/dL (74-106); Potassium 4.9 mmol/L (3.5-5.1); Protein, Total 6.2 g/dL (6.4-8.2); Sodium Level 139 mmol/L (136-145)
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
[2021-06-27] MEDS: ASCORBIC ACID 500 MG TABLET PO SCH ×2 (09:00→20:24)
[2021-06-27] MEDS: ASPIRIN EC 81 MG TAB PO SCH (09:00)
[2021-06-27] MEDS: FLUTICASONE 50MCG NASAL SPRAY NAS SCH ×2 (09:00→20:25)
[2021-06-27] MEDS: lisinopriL 20 MG TAB PO SCH (09:00)
[2021-06-27] MEDS: CLOPIDOGREL 75 MG TABLET PO SCH (09:00)
[2021-06-27] MEDS: AMLODIPINE 10 MG TAB PO SCH (09:04)
[2021-06-27] MEDS: METHYLPREDNISOLONE 125 MG INJ IV SCH ×2 (09:04→20:23)
[2021-06-27] MEDS: THIAMINE HCL 100 MG TABLET PO SCH (09:04)
[2021-06-27] MEDS: ZINC SULFATE 220 MG CAP PO SCH (09:04)
[2021-06-27] MEDS: VITAMIN D 5,000 UNIT CAP PO SCH (09:04)
[2021-06-27] MEDS: FAMOTIDINE 20 MG TAB PO SCH ×2 (09:04→20:24)
[2021-06-27] MEDS: BARICITINIB 2 MG TABLET PO SCH (09:09)
[2021-06-27] MEDS: levoFLOXacin 500 MG TAB PO SCH (17:00)
[2021-06-27] MEDS: RIVAROXABAN 20 MG TABLET PO SCH (17:00)
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
[2021-06-27] MEDS: ATORVASTATIN 80 MG TAB PO SCH (20:24)
[2021-06-27] MEDS: BENZONATATE 100 MG CAP PO PRN (20:24)
[2021-06-27] MEDS: MELATONIN 5 MG TABLET PO SCH (20:24)
[2021-06-28] MEDS: FLUTICASONE 50MCG NASAL SPRAY NAS SCH ×2 (09:00→21:00)
[2021-06-28] MEDS: METHYLPREDNISOLONE 125 MG INJ IV SCH ×2 (09:10→21:40)
[2021-06-28] MEDS: THIAMINE HCL 100 MG TABLET PO SCH (09:11)
[2021-06-28] MEDS: BARICITINIB 2 MG TABLET PO SCH (09:11)
[2021-06-28] MEDS: lisinopriL 20 MG TAB PO SCH (09:11)
[2021-06-28] MEDS: ASPIRIN EC 81 MG TAB PO SCH (09:11)
[2021-06-28] MEDS: FAMOTIDINE 20 MG TAB PO SCH ×2 (09:11→21:42)
[2021-06-28] MEDS: AMLODIPINE 10 MG TAB PO SCH (09:11)
[2021-06-28] MEDS: ASCORBIC ACID 500 MG TABLET PO SCH ×2 (09:11→21:40)
[2021-06-28] MEDS: VITAMIN D 5,000 UNIT CAP PO SCH (09:11)
[2021-06-28] MEDS: ZINC SULFATE 220 MG CAP PO SCH (09:12)
[2021-06-28] MEDS: CLOPIDOGREL 75 MG TABLET PO SCH (09:12)
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
[2021-06-28] MEDS: RIVAROXABAN 20 MG TABLET PO SCH (17:40)
[2021-06-28] MEDS: levoFLOXacin 500 MG TAB PO SCH (17:40)
[2021-06-28] MEDS ORDERED: MELATONIN 5 MG TABLET PO ONE (21:34)
[2021-06-28] MEDS: ATORVASTATIN 80 MG TAB PO SCH (21:41)
[2021-06-28] MEDS: MELATONIN 5 MG TABLET PO SCH (21:41)
[2021-06-28] MEDS: BENZONATATE 100 MG CAP PO PRN (21:51)
[2021-06-29 04:16] LABS: Hematocrit 38.7 % (39.6-49.0); MPV 7.9 fL (7.6-11.3); RBC Red Blood Cell Count 4.61 M/uL (4.33-5.43)
[2021-06-29 04:27] LABS: BUN Blood Urea Nitrogen 24 mg/dL (7-18); Bicarbonate 28 mmol/L (21-32); Glucose Level 145 mg/dL (74-106); Potassium 5.1 mmol/L (3.5-5.1); Sodium Level 138 mmol/L (136-145)
[2021-06-29 04:33] LABS: C-Reactive Protein < 2.90 mg/L (<3.00)
[2021-06-29] MEDS: METHYLPREDNISOLONE 125 MG INJ IV SCH ×2 (09:00→20:26)
[2021-06-29] MEDS: lisinopriL 20 MG TAB PO SCH (09:00)
[2021-06-29] MEDS: FLUTICASONE 50MCG NASAL SPRAY NAS SCH ×2 (09:00→21:00)
[2021-06-29] MEDS: AMLODIPINE 10 MG TAB PO SCH (09:00)
[2021-06-29] MEDS: BARICITINIB 2 MG TABLET PO SCH (09:00)
[2021-06-29] MEDS: FAMOTIDINE 20 MG TAB PO SCH ×2 (09:00→20:27)
[2021-06-29] MEDS: ASCORBIC ACID 500 MG TABLET PO SCH ×2 (09:00→20:27)
[2021-06-29] MEDS: VITAMIN D 5,000 UNIT CAP PO SCH (09:33)
[2021-06-29] MEDS: ASPIRIN EC 81 MG TAB PO SCH (09:33)
[2021-06-29] MEDS: CLOPIDOGREL 75 MG TABLET PO SCH (09:33)
[2021-06-29] MEDS: ZINC SULFATE 220 MG CAP PO SCH (09:40)
[2021-06-29] MEDS: THIAMINE HCL 100 MG TABLET PO SCH (09:40)
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
[2021-06-29] MEDS: RIVAROXABAN 20 MG TABLET PO SCH (16:41)
[2021-06-29] MEDS: levoFLOXacin 500 MG TAB PO SCH (16:41)
[2021-06-29] MEDS: ATORVASTATIN 80 MG TAB PO SCH (20:27)
[2021-06-29] MEDS: MELATONIN 5 MG TABLET PO SCH (20:27)
[2021-06-29] MEDS: BENZONATATE 100 MG CAP PO PRN (20:27)
[2021-06-30] MEDS: FLUTICASONE 50MCG NASAL SPRAY NAS SCH (09:00)
[2021-06-30] MEDS: METHYLPREDNISOLONE 125 MG INJ IV SCH (10:11)
[2021-06-30] MEDS: BARICITINIB 2 MG TABLET PO SCH (10:11)
[2021-06-30] MEDS: FEXOFENADINE 180 MG TAB PO PRN (10:12)
[2021-06-30] MEDS: lisinopriL 20 MG TAB PO SCH (10:12)
[2021-06-30] MEDS: VITAMIN D 5,000 UNIT CAP PO SCH (10:12)
[2021-06-30] MEDS: ASCORBIC ACID 500 MG TABLET PO SCH (10:12)
[2021-06-30] MEDS: THIAMINE HCL 100 MG TABLET PO SCH (10:12)
[2021-06-30] MEDS: FAMOTIDINE 20 MG TAB PO SCH (10:13)
[2021-06-30] MEDS: AMLODIPINE 10 MG TAB PO SCH (10:13)
[2021-06-30] MEDS: CLOPIDOGREL 75 MG TABLET PO SCH (10:13)
[2021-06-30] MEDS: ZINC SULFATE 220 MG CAP PO SCH (10:13)
[2021-06-30] MEDS: ASPIRIN EC 81 MG TAB PO SCH (10:13)
[2021-06-30] MEDS: BENZONATATE 100 MG CAP PO PRN (10:33)
[2021-06-30 10:49] VITALS: O2SAT 97
[2021-06-30 12:52] VITALS: BP 112/75; TEMP 98.2
== END 2021-06-30 14:00 | disposition home or self-care (01) | DRG 177 ==
LOC: ER 12:17 → ERHOLD 16:01 → 4TH 06-22 00:14
PROVIDERS: ADMIT Hospitalist; ATTEND Internal Medicine
PROC: XW033E5 Introduction of Remdesivir Anti-infective into Peripheral Vein, Percutaneous Approach, New Technology Group 5 (ICD-10-PCS; principal; 2021-06-22)
DX: U07.1 COVID-19 (principal); J12.82 Pneumonia due to coronavirus disease 2019; J96.01 Acute respiratory failure with hypoxia; I10 Essential (primary) hypertension; I25.10 Atherosclerotic heart disease of native coronary artery without angina pectoris
CPT/HCPCS: 36415; 70450; 71045; 80048; 80053; 80061; 80076; 81003; 82728; 83036; 83735; 83880; 84439; 84443; 84484; 85025; 85027; 85610; 86140; 87040; 93005; 96372; 96374; 99285; J1644; J1650; J2930; J7050; U0003